=== PATIENT | female | born 1990 | race Two or more races ===

== ENCOUNTER 2018-11-08 21:07 | Emergency (ER) | payer BC ==
[~2018-11-08] VITALS: Ht 162.6 cm; Wt 63.6 kg
--- NOTE | 2018-11-08 22:07 | NUR ---
PT IN ROOM WITH FAMILY MEMBERS NO NEEDS AT THIS TIME. WILL CONTINUE TO MONITOR
[2018-11-08 23:32] VITALS: BP 119/97
[2018-11-08] MEDS ORDERED: ondansetron 4mg/5ml UD cup PO ONE (23:35)
== END 2018-11-08 23:42 | disposition home or self-care (01) ==
LOC: ER 21:08
DX: T67.5XXA Heat exhaustion, unspecified, initial encounter (principal); R55 Syncope and collapse; E86.0 Dehydration; X30.XXXA Exposure to excessive natural heat, initial encounter; Y93.89 Activity, other specified; Y92.89 Other specified places as the place of occurrence of the external cause; Y99.8 Other external cause status
CPT/HCPCS: 93005; 99283; J2405

== ENCOUNTER 2019-05-10 09:59 | Emergency (ER) | payer BC ==
[~2019-05-10] VITALS: Ht 165.1 cm; Wt 65.9 kg
[2019-05-10] MEDS ORDERED: benzonatate 100mg capsule PO ONE (10:20)
[2019-05-10] MEDS ORDERED: acetaminophen 325mg tablet PO ONE (10:20)
[2019-05-10] MEDS ORDERED: ondansetron 4mg rapidly disintigrating tab PO ONE (10:20)
[2019-05-10 11:08] LABS: BASOPHILS % (AUTO) 0.7 % (0-1); EOSINOPHILS # (AUTO) 0.1 X10'3 (0-0.9); HEMATOCRIT 42.1 % (35.0-45.0); HEMOGLOBIN 14.2 g/dl (12.0-16.0); LYMPHOCYTES # (AUTO) 1.2 X10'3 (1.1-4.8); LYMPHOCYTES % (AUTO) 21.5 % (21-51); MEAN CORPUSCULAR HEMOGLOBIN 28.5 PG (27.0-31.0); MEAN CORPUSCULAR HGB CONC 33.8 g/dL (33.0-36.5); MEAN CORPUSCULAR VOLUME 84.3 FL (78-98); MEAN PLATELET VOLUME 9.3 FL (7.4-10.4); MONOCYTES # (AUTO) 0.5 X10'3 (0-0.9); MONOCYTES % (AUTO) 8.7 % (2-12); NEUTROPHILS # (AUTO) 3.7 X10'3 (1.8-7.7); NEUTROPHILS % (AUTO) 68.1 % (42-75); PLATELET COUNT 260 X10'3 (140-440); RED CELL DISTRIBUTION WIDTH 13.5 % (11.5-14.5); WHITE BLOOD COUNT 5.4 X10'3 (4.5-11.0)
[2019-05-10 11:22] LABS: ALANINE AMINOTRANSFERASE 25 U/L (12-78); ALBUMIN 4.1 G/DL (3.4-5.0); ALBUMIN/GLOBULIN RATIO 1.1 (1.1-1.5); ALKALINE PHOSPHATASE 75 IU/L (46-116); ANION GAP 10 (8-16); ASPARTATE AMINO TRANSFERASE 15 U/L (10-37); BILIRUBIN,TOTAL 0.6 MG/DL (0.1-1.0); BLOOD UREA NITROGEN 9 MG/DL (7-18); BUN/CREATININE RATIO 13.6 (6.6-38.0); CALCIUM 9.2 MG/DL (8.5-10.1); CHLORIDE 104 MMOL/L (99-107); CREATININE 0.66 MG/DL (0.40-0.90); GLUCOSE 86 MG/DL (70-104); POTASSIUM 3.7 MMOL/L (3.5-5.1); SODIUM 140 MMOL/L (135-145); TOTAL CARBON DIOXIDE 26.5 MMOL/L (24-32); eGFR > 90 ML/MIN
[2019-05-10 11:56] VITALS: BP 120/84
== END 2019-05-10 11:58 | disposition home or self-care (01) ==
LOC: ER 09:59
DX: B34.9 Viral infection, unspecified (principal); R09.81 Nasal congestion; R07.89 Other chest pain; R53.83 Other fatigue; Z98.890 Other specified postprocedural states
CPT/HCPCS: 36415; 71045; 80053; 85025; 99284